=== PATIENT | male | born 1990 | race African-American/Black ===

== ENCOUNTER 2018-09-19 21:35 | Emergency (ER) | payer SELFPAY ==
[~2018-09-19] VITALS: Ht 182.9 cm; Wt 102.1 kg
[2018-09-19 22:00] VITALS: BP 146/84
== END 2018-09-20 01:10 | disposition home or self-care (01) ==
LOC: ER 21:39
DX: S63.91XA Sprain of unspecified part of right wrist and hand, initial encounter (principal); Z88.1 Allergy status to other antibiotic agents; X58.XXXA Exposure to other specified factors, initial encounter; Y93.89 Activity, other specified; Y99.8 Other external cause status; Y92.89 Other specified places as the place of occurrence of the external cause
CPT/HCPCS: 73130

== ENCOUNTER 2018-10-26 11:24 | Emergency (ER) | payer MEDICAID ==
[~2018-10-26] VITALS: Ht 185.4 cm; Wt 99.8 kg
[2018-10-26] MEDS ORDERED: IBUPROFEN 100MG/5ML ORAL SUSP 100 MG/5 ML UD ONE (11:33)
[2018-10-26] MEDS ORDERED: IBUPROFEN 100MG/5ML ORAL SUSP 100 MG/5 ML UD PO ONE (11:45)
[2018-10-26 12:56] VITALS: BP 119/63
== END 2018-10-26 13:19 | disposition home or self-care (01) ==
LOC: ER 11:24
DX: G44.209 Tension-type headache, unspecified, not intractable (principal)
CPT/HCPCS: 70450